=== PATIENT | male | born 1990 | race Caucasian/White ===

== ENCOUNTER 2020-04-07 15:18 | Emergency (ER) | payer OTHER ==
[~2020-04-07] VITALS: Ht 160 cm; Wt 87.1 kg
[2020-04-07] MEDS ORDERED: IV NS 0.9% 1,000 ML BAG IV ONE (15:30)
[2020-04-07] MEDS ORDERED: LEVETIRACETAM (500MG) 500 MG in IV NS 0.9% 100 ML IV ONE (15:30)
--- NOTE | 2020-04-07 15:35 | NUR ---
PT REFUSED EKG
--- NOTE | 2020-04-07 15:43 | NUR ---
PT REFUSED TO HAVE TREATMENTS DONE. MD WAS AT THE BEDSIDE TALKING TO PATIENT BUT STILL REFUSED
--- NOTE | 2020-04-07 15:45 | NUR ---
HUSAM AND FROM [facility] TO ER BED 12. AAOX4. NOT IN RESP DISTRESS, BREATHING EVEN AND UNLABORED. BROUGHT IN FOR S/P SEIZURE. EPISODE WAS WITNESSED BUT UNABLE TO BE DESCRIBED BY THE TRAIN MASTER. PLCAED ON SEIZURE PRECAUTION. PT IS REFUSING TO HAVE TREATMENT DONE. WAS AT TH BEDSIDE.
[2020-04-07] MEDS ORDERED: LEVE500T9 PO (16:01)
--- NOTE | 2020-04-07 16:11 | NUR ---
Patient does not wish to proceed with medical care recommended by Carrington Michaels. Patient given information related to possible complications, up to and including , which could occur as a result of leaving the hospital at this time. Patient verbalizes understanding of risks involved due to leaving against medical advice. Patient has signed AMA form.
--- NOTE | 2020-04-07 16:11 | NUR ---
pt is released under the care of .
--- NOTE | 2020-04-07 16:22 | NUR ---
PT LEFT WITH 3 [employer] ON CUFFS. AMBULATORY ON STEADY GAIT.
[2020-04-07 16:25] VITALS: BP 128/72
== END 2020-04-07 16:25 ==
LOC: ER 15:24
DX: G40.909 Epilepsy, unspecified, not intractable, without status epilepticus (principal); Z79.899 Other long term (current) drug therapy
CPT/HCPCS: 80307; 93005; 99284; J1953; J7030

== ENCOUNTER 2020-09-14 09:21 | Emergency (ER) | payer OTHER ==
[~2020-09-14] VITALS: Ht 160 cm; Wt 103.4 kg
[~2020-09-14 09:21] MED LIST: LEVE500T9 PO
[2020-09-14 09:37] VITALS: BP 129/77
--- NOTE | 2020-09-14 09:47 | NUR ---
MEDICALLY CLEARED. D/C TO [facility] IN STABLE CONDITION.
== END 2020-09-14 09:48 ==
LOC: ER 09:24
DX: Z02.89 Encounter for other administrative examinations (principal); R56.9 Unspecified convulsions; Z79.899 Other long term (current) drug therapy